=== PATIENT | male | born 1960 | race Caucasian/White ===

== ENCOUNTER 2019-12-20 20:31 | Observation (INO) ==
[2019-12-20] MEDS ORDERED: 0.9 % Sodium Chloride 1,000 ML IVC ONE ×2 (20:58→22:50)
[2019-12-20 21:17] LABS: Basophils % 0.4 %; Eosinophils # 0.1 K/mcL (0.0-0.6); Eosinophils % 0.6 %; Hematocrit 49.4 % (37.5-50.1); Hemoglobin 16.8 g/dL (12.9-16.9); Immature Granulocytes % 0.4 % (0-4); Lymphocytes # 1.7 K/mcL (0.6-4.6); Lymphocytes % 16.5 %; Mean Corpuscular Volume 85.3 fL (83.0-100.0); Mean Platelet Volume 9.4 fL (9.4-12.4); Monocytes # 0.8 K/mcL (0.0-1.3); Monocytes % 7.2 %; Neutrophils # 7.8 K/mcL (1.6-8.9); Platelet Count 259 K/mcL (140-400); Red Blood Count 5.79 M/mcL (4.19-5.50); Red Cell Distribution Width 13.6 % (11.5-14.5); Segmented Neutrophils % 74.9 %; White Blood Count 10.5 K/mcL (4.3-11.1)
[2019-12-20 21:40] LABS: Albumin 4.3 g/dL (3.5-5.7); Albumin/Globulin Ratio 1.4 (1.1-2.2); Bilirubin,Total 0.5 mg/dL (0.3-1.0); Calcium 9.9 mg/dL (8.6-10.3); Magnesium 2.6 mg/dL (1.6-2.6); Potassium 2.8 mEq/L (3.5-5.1); Total Protein 7.3 g/dL (6.4-8.9)
[2019-12-20 21:47] LABS: Troponin I 0.13 ng/mL (< 0.04)
[2019-12-20] MEDS ORDERED: Potassium Chloride 40 MEQ, Lidocaine 1% 2 ML in 0.9 % Sodium Chloride 500 ML IVPB ONE (21:50)
[2019-12-20 21:54] LABS: Thyroid Stimulating Hormone 1.49 mcIU/mL (0.340-5.600)
[2019-12-20] MEDS ORDERED: Aspirin 325 MG TABLET PO ONE (22:50)
[2019-12-20] MEDS ORDERED: *HR* Heparin 5,000 UNIT/ML VIAL IVP PRN ×2 (22:54)
[2019-12-20] MEDS ORDERED: *HR* Heparin 5,000 UNIT/ML VIAL IVP ONE (22:54)
[2019-12-20] MEDS ORDERED: Heparin 25,000 UNIT/250 ML D5W 25,000 UNIT/250 ML IV.SOLN IVC SCH (23:00)
[2019-12-20 23:01] LABS: Bacteria,Urine Few per hpf (None-Few); Bilirubin,Urine Negative (Negative); Blood,Urine Negative (Negative); Clarity,Urine Clear (Clear); Color,Urine Light-Yellow (Yellow); Glucose,Urine (UA) >=1000 mg/dL (Normal); Ketones,Urine Negative (Negative); Leukocyte Esterase,Urine Negative (Negative); Mucus,Urine Few per lpf (None-Few); Nitrite,Urine Negative (Negative); PH,Urine 6.5 pH Units (5.0-8.0); Protein,Urine 200 mg/dL (Neg-Trace); RBC,Urine 0-3 per hpf (0-3); Specific Gravity,Urine 1.012 (1.010-1.025); Sperm,Urine Present (None Seen); Urobilinogen,Urine Normal (Normal)
[2019-12-20 23:28] LABS: Heparin anti-factor XA UFH < 0.04 IU/mL (0.30-0.70)
[2019-12-20 23:29] LABS: Prothrombin Time 10.8 Seconds (9.4-12.1)
[2019-12-20] MEDS ORDERED: Ringers Solution, Lactated 1,000 ML IVC SCH (23:30)
[2019-12-20] MEDS ORDERED: Naloxone 0.4 MG/ML INJ IVP PRN (23:30)
[2019-12-20 23:40] LABS: Hemoglobin 15.5 g/dL (12.9-16.9); Mean Corpuscular HGB Conc 33.7 g/dL (31.6-35.5); Mean Corpuscular Hemoglobin 29.2 pg (28.0-33.3); Mean Corpuscular Volume 86.6 fL (83.0-100.0); Mean Platelet Volume 9.3 fL (9.4-12.4); Platelet Count 233 K/mcL (140-400); Red Blood Count 5.31 M/mcL (4.19-5.50); Red Cell Distribution Width 13.6 % (11.5-14.5); White Blood Count 10.3 K/mcL (4.3-11.1)
[2019-12-21] MEDS ORDERED: Dextrose Gel 15 GM/37.5 ML TUBE PO PRN ×2 (01:32)
[2019-12-21] MEDS ORDERED: D5% in Water 1,000 ML IVC PRN (01:32)
[2019-12-21] MEDS ORDERED: *HR* Dextrose 50 % in Water (Vial) 50 ML VIAL IVP PRN (01:32)
[2019-12-21] MEDS ORDERED: Perflutren Lipid Microsphere 1.3 ML in 0.9 % Sodium Chloride 8.7 ML IVP PRN (01:34)
[2019-12-21 03:28] LABS: Prothrombin Time 11.3 Seconds (9.4-12.1)
[2019-12-21 03:41] LABS: Uric Acid 5.9 mg/dL (2.3-7.6)
[2019-12-21 03:42] LABS: Calcium 7.8 mg/dL (8.6-10.3); Chol/HDL Ratio 3.1 (0-4.9); Phosphorous 2.2 mg/dL (2.7-4.5); Potassium 2.9 mEq/L (3.5-5.1)
[2019-12-21 04:14] LABS: Basophils % 0.4 %; Eosinophils # 0.2 K/mcL (0.0-0.6); Eosinophils % 1.6 %; Hematocrit 43.7 % (37.5-50.1); Hemoglobin 14.5 g/dL (12.9-16.9); Immature Granulocytes % 0.3 % (0-4); Lymphocytes # 2.1 K/mcL (0.6-4.6); Lymphocytes % 22.9 %; Mean Corpuscular HGB Conc 33.2 g/dL (31.6-35.5); Mean Corpuscular Hemoglobin 28.8 pg (28.0-33.3); Mean Corpuscular Volume 86.7 fL (83.0-100.0); Mean Platelet Volume 9.5 fL (9.4-12.4); Monocytes # 0.6 K/mcL (0.0-1.3); Monocytes % 6.5 %; Neutrophils # 6.3 K/mcL (1.6-8.9); Platelet Count 211 K/mcL (140-400); Red Blood Count 5.04 M/mcL (4.19-5.50); Red Cell Distribution Width 13.6 % (11.5-14.5); Segmented Neutrophils % 68.3 %; White Blood Count 9.2 K/mcL (4.3-11.1)
[2019-12-21] MEDS: Insulin LISPRO 300 UNITS/3 ML VIAL SQ SCH ×3 (05:57→18:15)
[2019-12-21 06:17] LABS: Protein/Creatinine Ratio,Urine 2.07 mg/mg (0.00-0.20); Sodium, Urine 51.2 mEq/L
[2019-12-21] MEDS: 0.9 % Sodium Chloride w KCl 40 MEQ/1,000 ML MLS IVC SCH ×2 (09:09→19:50)
[2019-12-21] MEDS: Aspirin Enteric Coated 81 MG Tablet PO SCH (09:09)
[2019-12-21] MEDS ORDERED: polyethylene glycoL 3350 17 GM POWD.PACK PO PRN (15:14)
[2019-12-21] MEDS: Metoprolol XL (24 HR) Succ 50 MG TAB.ER.24H PO SCH (15:35)
[2019-12-21] MEDS: amLODIPine 5 MG TABLET PO SCH (15:35)
[2019-12-21] MEDS: *HR* Heparin 5,000 UNIT/ML VIAL SQ SCH (18:16)
[2019-12-21] MEDS ORDERED: Insulin DETEMIR 100 UNIT/ML X5UNITS SQ SCH (21:00)
[2019-12-22 02:21] LABS: Basophils % 0.3 %; Eosinophils # 0.1 K/mcL (0.0-0.6); Eosinophils % 1.4 %; Hematocrit 40.1 % (37.5-50.1); Hemoglobin 13.1 g/dL (12.9-16.9); Immature Granulocytes % 0.4 % (0-4); Lymphocytes % 22.1 %; Mean Corpuscular HGB Conc 32.7 g/dL (31.6-35.5); Mean Corpuscular Hemoglobin 29.5 pg (28.0-33.3); Mean Corpuscular Volume 90.3 fL (83.0-100.0); Mean Platelet Volume 9.7 fL (9.4-12.4); Monocytes # 0.7 K/mcL (0.0-1.3); Monocytes % 7.6 %; Neutrophils # 6.3 K/mcL (1.6-8.9); Platelet Count 205 K/mcL (140-400); Red Blood Count 4.44 M/mcL (4.19-5.50); Red Cell Distribution Width 14.1 % (11.5-14.5); Segmented Neutrophils % 68.2 %; White Blood Count 9.2 K/mcL (4.3-11.1)
[2019-12-22 02:25] LABS: Magnesium 1.9 mg/dL (1.6-2.6); Phosphorous 2.3 mg/dL (2.7-4.5)
[2019-12-22 02:26] LABS: Potassium 4.1 mEq/L (3.5-5.1)
[2019-12-22] MEDS ORDERED: Regadenoson 0.4 MG/5 ML SYRINGE IVP ONE (06:02)
[2019-12-22] MEDS: Insulin LISPRO 300 UNITS/3 ML VIAL SQ SCH ×5 (06:05→20:46)
[2019-12-22] MEDS: *HR* Heparin 5,000 UNIT/ML VIAL SQ SCH ×2 (06:06→16:05)
[2019-12-22] MEDS ORDERED: *HR* LORazepam 2 MG/ML VIAL IM STA (06:52)
[2019-12-22 09:38] LABS: Folate 5.2 ng/mL (3.0-16.0)
[2019-12-22] MEDS ORDERED: Melatonin 3 MG TABLET PO PRN (12:59)
[2019-12-22] MEDS: Ringers Solution, Lactated 1,000 ML IVC SCH (15:18)
[2019-12-22] MEDS: Aspirin Enteric Coated 81 MG Tablet PO SCH (15:19)
[2019-12-22] MEDS: amLODIPine 5 MG TABLET PO SCH (15:19)
[2019-12-22] MEDS: Metoprolol XL (24 HR) Succ 50 MG TAB.ER.24H PO SCH (15:19)
[2019-12-22] MEDS ORDERED: NON-FORMULARY MEDICATION 1 EACH EACH (Dextroamphetamine/Amphetamine [Adderall 20 Mg Tablet PO SCH (16:00)
[2019-12-22] MEDS: *HR* LORazepam 2 MG/ML VIAL IVP PRN (17:40)
[2019-12-22] MEDS ORDERED: *HR* LORazepam 2 MG/ML VIAL IVP ONE (20:52)
[2019-12-22 20:58] LABS: Bacteria,Urine Few per hpf (None-Few); Bilirubin,Urine Negative (Negative); Blood,Urine Negative (Negative); Clarity,Urine Clear (Clear); Color,Urine Colorless (Yellow); Glucose,Urine (UA) 300 mg/dL (Normal); Ketones,Urine Negative (Negative); Leukocyte Esterase,Urine Negative (Negative); Nitrite,Urine Negative (Negative); Protein,Urine 50 mg/dL (Neg-Trace); RBC,Urine 0-3 per hpf (0-3); Specific Gravity,Urine 1.009 (1.010-1.025); Urobilinogen,Urine Normal (Normal)
[2019-12-22] MEDS: 0.9 % Sodium Chloride w KCl 40 MEQ/1,000 ML MLS IVC SCH (21:08)
[2019-12-22 21:09] LABS: Amphetamine Screen,Urine Negative ng/mL (Cutoff=1000); Barbiturate Screen,Urine Negative ng/mL (Cutoff=200); Benzodiazepines Screen,Urine Negative ng/mL (Cutoff=200); Cannabinoid Screen,Urine Negative ng/mL (Cutoff = 50); Cocaine Screen,Urine Negative ng/mL (Cutoff= 300); Opiate Screen,Urine Negative ng/mL (Cutoff=300); Phencyclidine Screen,Urine Negative ng/mL (Cutoff=25)
[2019-12-22] MEDS ORDERED: *HR* LORazepam 2 MG/ML VIAL IVP STA (22:18)
[2019-12-23] MEDS: *HR* LORazepam 2 MG/ML VIAL IVP PRN ×2 (01:42→07:48)
[2019-12-23 02:06] LABS: Basophils # 0.1 K/mcL (0.0-0.2); Basophils % 0.7 %; Eosinophils # 0.1 K/mcL (0.0-0.6); Eosinophils % 1.2 %; Hematocrit 47.9 % (37.5-50.1); Immature Granulocytes % 0.4 % (0-4); Lymphocytes # 2.1 K/mcL (0.6-4.6); Lymphocytes % 23.2 %; Mean Corpuscular HGB Conc 32.6 g/dL (31.6-35.5); Mean Corpuscular Hemoglobin 29.5 pg (28.0-33.3); Mean Corpuscular Volume 90.5 fL (83.0-100.0); Mean Platelet Volume 9.5 fL (9.4-12.4); Monocytes # 0.6 K/mcL (0.0-1.3); Monocytes % 7.1 %; Platelet Count 221 K/mcL (140-400); Red Blood Count 5.29 M/mcL (4.19-5.50); Red Cell Distribution Width 14.3 % (11.5-14.5); Segmented Neutrophils % 67.4 %; White Blood Count 8.9 K/mcL (4.3-11.1)
[2019-12-23 02:11] LABS: Hemoglobin 15.6 g/dL (12.9-16.9)
[2019-12-23] MEDS: Ringers Solution, Lactated 1,000 ML IVC SCH ×3 (02:19→17:45)
[2019-12-23 02:22] LABS: Calcium 8.8 mg/dL (8.6-10.3); Potassium 3.4 mEq/L (3.5-5.1)
[2019-12-23 03:07] LABS: Estimated Average Glucose 183 mg/dl
[2019-12-23] MEDS: *HR* Heparin 5,000 UNIT/ML VIAL SQ SCH ×2 (05:15→17:45)
[2019-12-23] MEDS: Insulin LISPRO 300 UNITS/3 ML VIAL SQ SCH ×4 (09:39→20:36)
[2019-12-23] MEDS ORDERED: *HR* LORazepam 2 MG/ML VIAL IVP PRN (09:43)
[2019-12-23] MEDS: Aspirin Enteric Coated 81 MG Tablet PO SCH (10:26)
[2019-12-23] MEDS: amLODIPine 5 MG TABLET PO SCH (10:26)
[2019-12-23] MEDS: Metoprolol XL (24 HR) Succ 50 MG TAB.ER.24H PO SCH (10:26)
[2019-12-23] MEDS ORDERED: *HR* LORazepam 2 MG/ML VIAL IVP ONE (21:51)
[2019-12-23] MEDS ORDERED: *HR* Metoprolol 5 MG/5 ML VIAL IVP ONE (21:52)
[2019-12-24] MEDS ORDERED: QUEtiapine Fumarate 25 MG TABLET PO ONE (00:29)
[2019-12-24 02:05] LABS: Basophils % 0.4 %; Eosinophils # 0.1 K/mcL (0.0-0.6); Eosinophils % 1.2 %; Hematocrit 48.3 % (37.5-50.1); Hemoglobin 15.7 g/dL (12.9-16.9); Immature Granulocytes % 0.4 % (0-4); Lymphocytes # 1.8 K/mcL (0.6-4.6); Lymphocytes % 19.5 %; Mean Corpuscular HGB Conc 32.5 g/dL (31.6-35.5); Mean Corpuscular Hemoglobin 28.9 pg (28.0-33.3); Mean Platelet Volume 9.4 fL (9.4-12.4); Monocytes # 0.7 K/mcL (0.0-1.3); Monocytes % 7.4 %; Neutrophils # 6.5 K/mcL (1.6-8.9); Platelet Count 233 K/mcL (140-400); Red Blood Count 5.43 M/mcL (4.19-5.50); Red Cell Distribution Width 14.3 % (11.5-14.5); Segmented Neutrophils % 71.1 %; White Blood Count 9.1 K/mcL (4.3-11.1)
[2019-12-24 02:22] LABS: Calcium 8.8 mg/dL (8.6-10.3); Potassium 3.2 mEq/L (3.5-5.1)
[2019-12-24] MEDS: Ringers Solution, Lactated 1,000 ML IVC SCH (02:46)
[2019-12-24] MEDS: *HR* Heparin 5,000 UNIT/ML VIAL SQ SCH ×2 (05:59→16:19)
[2019-12-24] MEDS: Insulin LISPRO 300 UNITS/3 ML VIAL SQ SCH ×4 (08:57→21:03)
[2019-12-24] MEDS: Aspirin Enteric Coated 81 MG Tablet PO SCH (09:03)
[2019-12-24] MEDS: Metoprolol XL (24 HR) Succ 50 MG TAB.ER.24H PO SCH (09:03)
[2019-12-24] MEDS: amLODIPine 5 MG TABLET PO SCH (09:03)
[2019-12-24] MEDS ORDERED: Melatonin 3 MG TABLET PO PRN (14:02)
[2019-12-24] MEDS: hydrALAZINE 25 MG TABLET PO SCH (16:20)
[2019-12-24] MEDS ORDERED: carvediloL 6.25 MG TABLET PO SCH (17:00)
[2019-12-24] MEDS ORDERED: *HR* LORazepam 1 MG TABLET PO ONE (19:14)
[2019-12-24] MEDS ORDERED: QUEtiapine Fumarate 25 MG TABLET PO SCH (21:00)
[2019-12-25] MEDS ORDERED: QUEtiapine Fumarate 25 MG TABLET PO ONE (00:08)
[2019-12-25] MEDS: hydrALAZINE 25 MG TABLET PO SCH ×4 (00:18→23:36)
[2019-12-25] MEDS: *HR* Heparin 5,000 UNIT/ML VIAL SQ SCH ×2 (05:43→16:39)
[2019-12-25 06:04] LABS: Basophils % 0.4 %; Eosinophils # 0.1 K/mcL (0.0-0.6); Eosinophils % 1.2 %; Hematocrit 43.9 % (37.5-50.1); Hemoglobin 14.5 g/dL (12.9-16.9); Immature Granulocytes % 0.4 % (0-4); Lymphocytes # 1.6 K/mcL (0.6-4.6); Lymphocytes % 19.3 %; Mean Corpuscular Volume 87.8 fL (83.0-100.0); Mean Platelet Volume 9.3 fL (9.4-12.4); Monocytes # 0.7 K/mcL (0.0-1.3); Monocytes % 8.1 %; Neutrophils # 5.9 K/mcL (1.6-8.9); Platelet Count 229 K/mcL (140-400); Red Cell Distribution Width 14.2 % (11.5-14.5); Segmented Neutrophils % 70.6 %; White Blood Count 8.3 K/mcL (4.3-11.1)
[2019-12-25 06:14] LABS: Calcium 8.6 mg/dL (8.6-10.3); Potassium 3.4 mEq/L (3.5-5.1)
[2019-12-25] MEDS: Insulin LISPRO 300 UNITS/3 ML VIAL SQ SCH ×4 (08:11→21:13)
[2019-12-25] MEDS: Aspirin Enteric Coated 81 MG Tablet PO SCH (08:11)
[2019-12-25] MEDS: carvediloL 6.25 MG TABLET PO SCH ×2 (08:11→15:21)
[2019-12-25] MEDS: QUEtiapine Fumarate 25 MG TABLET PO SCH (21:13)
[2019-12-26] MEDS: *HR* Heparin 5,000 UNIT/ML VIAL SQ SCH ×2 (05:23→18:15)
[2019-12-26] MEDS: Aspirin Enteric Coated 81 MG Tablet PO SCH (08:00)
[2019-12-26] MEDS: carvediloL 6.25 MG TABLET PO SCH ×2 (08:00→16:32)
[2019-12-26] MEDS: hydrALAZINE 25 MG TABLET PO SCH ×3 (08:00→23:25)
[2019-12-26 08:14] LABS: Calcium 8.1 mg/dL (8.6-10.3); Potassium 3.3 mEq/L (3.5-5.1)
[2019-12-26] MEDS: Insulin LISPRO 300 UNITS/3 ML VIAL SQ SCH ×4 (08:48→20:19)
[2019-12-26] MEDS: amLODIPine 5 MG TABLET PO SCH (11:05)
[2019-12-26] MEDS ORDERED: Potassium Chloride Elixir 20 MEQ/15 ML UDC PO ONE (11:30)
[2019-12-26] MEDS: QUEtiapine Fumarate 25 MG TABLET PO SCH (20:19)
[2019-12-27] MEDS: *HR* Heparin 5,000 UNIT/ML VIAL SQ SCH ×2 (05:03→16:46)
[2019-12-27 06:44] LABS: Calcium 8.3 mg/dL (8.6-10.3); Potassium 3.1 mEq/L (3.5-5.1)
[2019-12-27] MEDS ORDERED: Potassium Chloride Elixir 20 MEQ/15 ML UDC PO ONE (07:12)
[2019-12-27] MEDS: carvediloL 6.25 MG TABLET PO SCH ×2 (09:08→16:46)
[2019-12-27] MEDS: Aspirin Enteric Coated 81 MG Tablet PO SCH (09:08)
[2019-12-27] MEDS: hydrALAZINE 25 MG TABLET PO SCH ×2 (09:08→16:45)
[2019-12-27] MEDS: Insulin LISPRO 300 UNITS/3 ML VIAL SQ SCH ×4 (09:08→21:11)
[2019-12-27] MEDS: amLODIPine 5 MG TABLET PO SCH (09:08)
[2019-12-27] MEDS: QUEtiapine Fumarate 25 MG TABLET PO SCH (21:10)
[2019-12-28] MEDS: hydrALAZINE 25 MG TABLET PO SCH ×2 (00:22→07:37)
[2019-12-28] MEDS ORDERED: Acetaminophen 325 MG TABLET PO ONE (02:40)
[2019-12-28] MEDS: *HR* Heparin 5,000 UNIT/ML VIAL SQ SCH (06:20)
[2019-12-28] MEDS: Insulin LISPRO 300 UNITS/3 ML VIAL SQ SCH ×2 (07:36→11:40)
[2019-12-28] MEDS: Aspirin Enteric Coated 81 MG Tablet PO SCH (07:37)
[2019-12-28] MEDS: carvediloL 6.25 MG TABLET PO SCH (07:37)
[2019-12-28] MEDS: amLODIPine 5 MG TABLET PO SCH (07:37)
[2019-12-28] MEDS ORDERED: Acetaminophen 325 MG TABLET PO PRN (07:47)
[2019-12-28 11:40] VITALS: BP 144/78
== END 2019-12-28 15:29 | disposition home or self-care (01) | DRG 190 ==
LOC: EMEROOARM 20:31 → 2ANU 20:31 → SUATTDRO 23:42 → 2ANU 12-21 00:29 → SUATTDRO 12-22 13:57
PROVIDERS: ADMIT Internal Medicine; ATTEND Internal Medicine

== ENCOUNTER 2020-02-10 10:46 | Observation (INO) ==
[2020-02-10] MEDS ORDERED: 0.9 % Sodium Chloride 1,000 ML IVC SCH (11:15)
[2020-02-10 12:24] LABS: Adenovirus Not Detected (Not Detect); Bordetella Pertussis Not Detected (Not Detect); Chlamydophila pneumoniae Not Detected (Not Detect); Coronavirus 229E Not Detected (Not Detect); Coronavirus HKU1 Not Detected (Not Detect); Coronavirus NL63 Not Detected (Not Detect); Coronavirus OC43 Not Detected (Not Detect); Human Metapneumovirus Not Detected (Not Detect); Human Rhinovirus/Enterovirus Not Detected (Not Detect); Influenza A Subtype 2009 H1 Not Detected (Not Detect); Influenza B Not Detected (Not Detect); Mycoplasma pneumoniae Not Detected (Not Detect); Parainfluenza Virus 1 Not Detected (Not Detect); Parainfluenza Virus 2 Not Detected (Not Detect); Parainfluenza Virus 3 Not Detected (Not Detect); Parainfluenza Virus 4 Not Detected (Not Detect); Respiratory Syncytial Virus Not Detected (Not Detect); SARS-CoV-2 Not Detected (Not Detect)
[2020-02-10] MEDS ORDERED: Heparin 1,000 UNITS/500 mL 500 ML ONE (12:42)
[2020-02-10] MEDS ORDERED: Nitroglycerin 1,000 MCG/10 ML VIAL IV ONE (12:42)
[2020-02-10] MEDS ORDERED: 0.9 % Sodium Chloride 1,000 ML ONE (12:42)
[2020-02-10] MEDS ORDERED: ISOVUE-370 200 ML INFUS..BTL ONE (12:42)
[2020-02-10] MEDS ORDERED: *HR* Heparin 10,000 UNIT/10 ML VIAL ONE (12:42)
[2020-02-10] MEDS ORDERED: *HR* Midazolam HCl 2 MG/2 ML VIAL ONE (12:54)
[2020-02-10] MEDS ORDERED: Acetaminophen 325 MG TABLET PO PRN (13:36)
[2020-02-10] MEDS: carvediloL 25 MG TABLET PO SCH (17:50)
[2020-02-11 04:05] LABS: Calcium 8.4 mg/dL (8.6-10.3); Potassium 3.5 mEq/L (3.5-5.1)
[2020-02-11] MEDS: carvediloL 25 MG TABLET PO SCH ×2 (08:11→17:22)
[2020-02-11] MEDS: Isosorbide MONOnitrate (24 HR) 30 MG TAB.ER.24H PO SCH (08:11)
[2020-02-11] MEDS: *HR* GlipiZIDE XL (24 HR) 2.5 MG TABLET PO SCH (08:11)
[2020-02-11] MEDS: Aspirin 81 MG TAB.CHEW PO SCH (08:11)
[2020-02-11] MEDS ORDERED: amLODIPine 5 MG TABLET PO SCH (09:00)
[2020-02-11] MEDS: amLODIPine 5 MG TABLET PO SCH (10:35)
[2020-02-11] MEDS ORDERED: Melatonin 3 MG TABLET PO ONE (21:22)
[2020-02-12] MEDS: amLODIPine 5 MG TABLET PO SCH (07:56)
[2020-02-12] MEDS: *HR* GlipiZIDE XL (24 HR) 2.5 MG TABLET PO SCH (08:08)
[2020-02-12] MEDS: carvediloL 25 MG TABLET PO SCH (08:08)
[2020-02-12] MEDS: Isosorbide MONOnitrate (24 HR) 30 MG TAB.ER.24H PO SCH (08:09)
[2020-02-12] MEDS: Aspirin 81 MG TAB.CHEW PO SCH (08:09)
[2020-02-12] MEDS ORDERED: amLODIPine 5 MG TABLET PO SCH (09:00)
[2020-02-12] MEDS ORDERED: hydrALAZINE 25 MG TABLET PO PRN (10:30)
[2020-02-12] MEDS ORDERED: hydrALAZINE 25 MG TABLET PO SCH (10:32)
[2020-02-12 13:18] VITALS: BP 157/84
[2020-02-12] MEDS ORDERED: Dextrose Gel 15 GM/37.5 ML TUBE PO PRN ×2 (14:19)
[2020-02-12] MEDS ORDERED: *HR* Dextrose 50 % in Water (Vial) 50 ML VIAL IVP PRN (14:19)
[2020-02-12] MEDS ORDERED: D5% in Water 1,000 ML IVC PRN (14:19)
[2020-02-12] MEDS ORDERED: Insulin LISPRO 300 UNITS/3 ML VIAL SQ SCH (16:30)
[2020-02-12] MEDS ORDERED: traZODone 50 MG TABLET PO SCH (21:00)
[2020-02-12] MEDS ORDERED: *HR* Heparin 5,000 UNIT/ML VIAL SQ SCH (22:00)
== END 2020-02-12 15:30 ==
LOC: INVDIALAB 10:46 → 3BNU 10:46
PROVIDERS: ADMIT Internal Medicine Cardiovascular Disease; ATTEND Internal Medicine Cardiovascular Disease